=== PATIENT | male | born 1970 | race African-American/Black ===

== ENCOUNTER 2017-05-07 01:12 | Emergency (ER) | payer OTHER ==
[2017-05-07] MEDS: SUMAtriptan SUCCINATE 25 MG TABLET PO ONE ×2 (01:25→01:43)
--- NOTE | 2017-05-07 01:25 | ED Physician Documentation ---
Headache - HISTORIAN Historian: patient - HPI Chief Complaint: Headache Additional Information: Patient has a history of cluster migraine headaches, patient states that he has them everyday. Has been seeing a neurologist. Recently has been placed on Nortriptyline and oxygen therapy. This seems to be helping him, however he has run out of the nortriptyline and his oxygen has run out. 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 Patient denies any nausea or vomiting. Has not had any history of head trauma. Patient states that the headaches usually is behind us right and describes it as a pounding sensation. Patient denies any numbness or weakness. Patient denies any visual acuity changes. Patient states is similar to his previous migraine headaches only more severe. Onset: hours (2 hours) Timing: abrupt, still present Severity: severe Quality: similar to previous Associated Symptoms: sensitivity to light, neck pain (crock in neck on the R side). denies: fever, chills, problems with vision, nausea, vomiting, light- headedness Exacerbated By: light, noise - ROS NEURO/PSYCH: denies: depression - PAST HX Medical History: hypertension Surgical History: no surgical history (did you estimate be smoked) Immunizations: referred to PCP Allergies/Adverse Reactions: Allergies Allergy/AdvReac Type Severity Reaction Status Date / Time tomato Allergy Unknown Verified 05/07/17 01:29 CDT Home Medications: Ambulatory Orders Medication Instructions Recorded Fluticasone Propionate [Flonase 1 spray NS D 01/11/15 Nasal [place]] SUMAtriptan SUCCINATE [Imitrex] 1 each SUBCUT PRN PRN 02/17/16 Verapamil HCl [Calan] 100 mg PO TID 02/17/16 - SOCIAL HX Smoking History: non-smoker Alcohol Use: none Drug Use: none - Family HX Family History: none - VITAL SIGNS Vital Signs: Vital Signs Temp Pulse Resp BP Pulse Ox 82 16 135/82 100 05/07/17 01:15 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 05/07/17 01:15 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 05/07/17 01:15 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 05/07/17 01:15 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 - REVIEWED ASSESSMENTS Nursing Assessment Reviewed: Yes Vitals Reviewed: Yes ED Results Lab/Radiology - Orders Orders: ED Orders Category Date Time Status Cyclobenzaprine HCl [Flexeril] Med 05/07/17 01:47 Once 10 mg PO NOW ONE Ketorolac Tromethamine [Toradol] Med 05/07/17 01:32 Discontinued 60 mg IM NOW ONE SUMAtriptan SUCCINATE [Imitrex] Med 05/07/17 01:22 Discontinued 50 mg PO .STK-MED ONE SUMAtriptan SUCCINATE [Imitrex] Med 05/07/17 01:22 Discontinued 50 mg PO NOW ONE Oxygen Daily Oxygen 05/07/17 01:30 Ordered Headache Physical Exam - EXAM General Appearance: alert, moderate distress Neck: normal inspection, supple, other (tenderness over the right trapizius). No: lymphadenopathy, stiff neck Respiratory: no resp distress, chest non-tender, breath sounds normal. No: wheezes, rales, rhonchi CVS: reg. rate & rhythm, heart sounds nml Abdomen: non-tender, no distention Skin: color nml, no rash - NEURO/PSYCH Higher Functions: alert, oriented x3, nml speech, mood/affect nml Cranial: nml as tested, no evidence of acute CVA Cerebellar: nml as tested Sensorimotor: motor nml, sensation nml Discharge Clincal Impression: Cluster headache Qualifiers: Headache chronicity pattern: chronic headache Intractability: not intractable Qualified Code(s): G44.029 - Chronic cluster headache, not intractable Additional Instructions: Alternate warm cool compress to the neck area. Continue with present medications. Condition: Stable Disposition: 01 HOME, SELF-CARE Decision to Admit: NO Date of Decison to Admit: 05/07/17 Decision Time: 01:51
[2017-05-07 01:37] VITALS: BP 135/82
[2017-05-07] MEDS: KETOROLAC TROMETHAMINE 60 MG/2 ML VIAL IM ONE (01:42)
[2017-05-07] MEDS: CYCLOBENZAPRINE HCL 5 MG TABLET PO ONE (01:52)
[2017-05-07] MEDS: CYCLOBENZAPRINE HCL 5 MG TABLET ONE (01:54)
== END 2017-05-07 01:15 | disposition home or self-care (01) ==
LOC: ED 01:12
DX: G44.029 Chronic cluster headache, not intractable (principal)
CPT/HCPCS: 96372; 99283; J1885

== ENCOUNTER 2017-07-26 09:03 | Emergency (ER) | payer OTHER ==
[2017-07-26 09:25] VITALS: BP 106/75
--- NOTE | 2017-07-26 09:30 | ED Physician Documentation ---
General Adult - HISTORIAN Historian: patient - HPI Stated Complaint: right knee pain Chief Complaint: General Adult Onset: days ago Timing: still present Further Comments: yes (Pt is a 46 yo male with R knee pain for several days. Pt does not recall acute injury. Pt states that he has occasionally gotten knee pain in the past, but this is worse than usual.) - ROS CONST: no problems EYES/ENT: none CVS/RESP: none GI/: none MS/SKIN/LYMPH: other (R knee pain) - PAST HX Past History: other (migraine) Allergies/Adverse Reactions: Allergies Allergy/AdvReac Type Severity Reaction Status Date / Time tomato Allergy Unknown Verified 07/26/17 10:00 Home Medications: Ambulatory Orders Medication Instructions Recorded Fluticasone Propionate [Flonase 1 spray NS D 01/11/15 Nasal [place]] SUMAtriptan SUCCINATE [Imitrex] 1 each SUBCUT PRN PRN 02/17/16 Verapamil HCl [Calan] 100 mg PO TID 02/17/16 - SOCIAL HX Smoking History: cigarettes - FAMILY HX Family History: No - VITAL SIGNS Vital Signs: Vital Signs Temp Pulse Resp BP Pulse Ox 97.7 F 80 20 106/75 99 07/26/17 09:04 07/26/17 09:04 07/26/17 09:04 07/26/17 09:04 07/26/17 09:04 - REVIEWED ASSESSMENTS Nursing Assessment Reviewed: Yes Vitals Reviewed: Yes Progress - Progress Progress: X-ray R knee: 3 views of the knee demonstrates normal cortical margins. No fracture. No dislocation. No joint effusion. Small suprapatellar spur. No soft tissue irregularity. Impression: No acute appearing osseous abnormality. SARA wrap R knee NSAIDS Pt may use crutches that are available to him prn. General Adult Physical Exam - PHYSICAL EXAM GENERAL APPEARANCE: mild distress NECK: normal inspection, supple RESPIRATORY: no resp distress, chest non-tender CVS: reg rate & rhythm, heart sounds normal BACK: normal inspection, no CVA tenderness SKIN: warm/dry, normal color EXTREMITIES: other (R knee tenderness over patella; no effusion; no ligamentous instability; FROM) NEURO: oriented X3, motor nml, sensation nml Discharge Clincal Impression: R knee pain Referrals: Primary Doctor,No [Primary Care Provider] - Condition: Good Disposition: 01 HOME, SELF-CARE Decision to Admit: NO Decision Time: 10:44
[2017-07-26] MEDS: KETOROLAC TROMETHAMINE 60 MG/2 ML VIAL IM ONE (09:55)
--- NOTE | 2017-07-26 10:49 | Diagnostic Imaging Report ---
KRYSTAL REYNOLDS [facility] [id number] [facility] [address] 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 No fracture. No dislocation. No joint effusion. Small suprapatellar spur. No soft tissue irregularity. Impression: No acute appearing osseous abnormality Electronically signed on Jul 26, 2017 10:35:30 AM REINFORCING BAR SETTER by: Isiah TAM
== END 2017-07-26 11:09 | disposition home or self-care (01) ==
LOC: ED 09:03
DX: M25.561 Pain in right knee (principal)
CPT/HCPCS: 73562; 96372; 99282; J1885

== ENCOUNTER 2017-08-05 10:57 | Emergency (ER) | payer OTHER ==
--- NOTE | 2017-08-05 11:08 | ED Physician Documentation ---
General Adult - HISTORIAN Historian: patient - HPI Stated Complaint: ear swelling Chief Complaint: General Adult Onset: hours Timing: still present Severity: moderate Further Comments: yes (Pt is a 46 yo male with hx cluster headaches. Pt had his L ear pierced as a treatment for his headache. After 2 weeks he removed the piercing. Pt has swelling in the area where the ear had been pierced. It is painful to like on that ear when sleeping.) - ROS CONST: no problems EYES/ENT: other (ext ear pain/swelling) CVS/RESP: none GI/: none MS/SKIN/LYMPH: none - PAST HX Past History: hypertension, other (cluster headaches) Allergies/Adverse Reactions: Allergies Allergy/AdvReac Type Severity Reaction Status Date / Time tomato Allergy Unknown Verified 08/05/17 11:13 Home Medications: Ambulatory Orders Medication Instructions Recorded Fluticasone Propionate [Flonase 1 spray NS D 01/11/15 Nasal [place]] SUMAtriptan SUCCINATE [Imitrex] 1 each SUBCUT PRN PRN 02/17/16 Verapamil HCl [Calan] 100 mg PO TID 02/17/16 Amoxicillin/Potassium Clav 1 each PO Q12H #20 tablet 08/05/17 [Augmentin 875-125 Tablet] - SOCIAL HX Smoking History: cigarettes - FAMILY HX Family History: No - VITAL SIGNS Vital Signs: Vital Signs Temp Pulse Resp BP Pulse Ox 106/75 07/26/17 09:04 - REVIEWED ASSESSMENTS Nursing Assessment Reviewed: Yes Vitals Reviewed: Yes Progress - Progress Progress: Possible abscess Rx Augmentin (875/125). Take one tablet by mouth every 12 hrs for 10 days. General Adult Physical Exam - PHYSICAL EXAM GENERAL APPEARANCE: mild distress EENT: pharynx normal NECK: normal inspection, supple RESPIRATORY: no resp distress, chest non-tender, breath sounds normal CVS: reg rate & rhythm, heart sounds normal, equal pulses ABDOMEN: soft, no organomegaly, normal bowel sounds BACK: normal inspection SKIN: other (swelling ext ear, does not appear with inflammation; ? abscess v keloid) EXTREMITIES: non-tender, normal range of motion, no evidence of injury NEURO: oriented X3, motor nml, sensation nml Discharge Clincal Impression: outer ear swelling Prescriptions: Amoxicillin/Potassium Clav [Augmentin 875-125 Tablet] 1 each PO Q12H #20 tablet Referrals: Mine Hong MD [Primary Care Provider] - Condition: Good Disposition: 01 HOME, SELF-CARE Decision to Admit: NO Decision Time: 11:14
[2017-08-05 11:46] VITALS: BP 148/85
== END 2017-08-05 11:38 | disposition home or self-care (01) ==
LOC: ED 10:57
DX: H93.8X2 Other specified disorders of left ear (principal); F17.210 Nicotine dependence, cigarettes, uncomplicated; I10 Essential (primary) hypertension
CPT/HCPCS: 99282; 99283

== ENCOUNTER 2017-11-17 07:58 | Emergency (ER) | payer OTHER ==
[2017-11-17] MEDS ORDERED: 0.9 % SODIUM CHLORIDE 1,000 ML IV SCH (08:30)
[2017-11-17] MEDS ORDERED: LOPERAMIDE HCL 2 MG CAPSULE PO ONE (08:32)
[2017-11-17] MEDS ORDERED: 0.9 % SODIUM CHLORIDE 1,000 ML IV ONE (08:42)
--- NOTE | 2017-11-17 08:42 | ED Physician Documentation ---
Abdominal Pain - HISTORIAN Historian: patient, spouse - HPI Stated Complaint: diarrhea Chief Complaint: Abdominal Pain Additonal Information: 4-5 diarrhea movements per day w/spotty abd pain onset last monday at mothers day picnic. no sig nausea eats fairly as usual. pt feels food poisioning but no other people got the symptoms. bm at first soft now liquid-normal color plus has triggered cluster headaches. there is urinary urgency b ut this not sig unusual Onset: days ago (5) Timing: worse Context: bad food. denies: out of country travel Severity: moderate Quality: pain, cramping, sharp Associated Symptoms: diarrhea. denies: nausea, vomiting, bloody emesis, bloody stools, grossly bloody stools, mucous, loss of appetite, chest pain Exacerbated by: food, walking Relieved by: other (has not taken any otc meds) - ROS CONST: no problems GI/: none CVS/RESP: none EYES/ENT: none MS/SKIN/LYMPH: none NEURO/PSYCH: headache - SOCIAL HX Smoking History: non-smoker Alcohol Use: rarely Drug Use: none - FAMILY HX Family History: no significant history ( does not have any diarrhea) - PAST HX Past History: other (cluster headaaches) Ischemic Bowel Risk Factors: none Other History: hypertension Surgeries/Procedures: appendectomy Home Medications: Ambulatory Orders Medication Instructions Recorded SUMAtriptan SUCCINATE [Imitrex] 1 each SUBCUT PRN PRN 02/17/16 Verapamil HCl [Calan] 100 mg PO TID 02/17/16 Allergies/Adverse Reactions: Allergies Allergy/AdvReac Type Severity Reaction Status Date / Time tomato Allergy Unknown Verified 11/17/17 08:15 - VITAL SIGNS Vital Signs: Vital Signs Temp Pulse Resp BP Pulse Ox 97.7 F 76 16 126/76 100 11/17/17 08:09 11/17/17 08:09 11/17/17 08:09 11/17/17 08:09 11/17/17 08:09 - REVIEWED ASSESSMENTS Nursing Assessment Reviewed: Yes Vitals Reviewed: Yes ED Results Lab/Radiology - Lab Results Lab Results: Lab Results 11/17/17 11/17/17 11/17/17 09:10 09:10 09:10 WBC 4.80 K/ul K/ul (4.00-12.00) RBC 4.45 M/ul M/ul (3.90-5.20) Hgb 12.8 g/dL g/dL (12.0-18.0) Hct 39.9 % % (37.0-53.0) MCV 89.5 fl fl (80.0-100.0) MCH 28.7 pg pg (28.0-34.0) MCHC 32.1 g/dL g/dL (30.0-36.0) RDW 12.7 % % (11.3-14.3) Plt Count 208 K/mm3 K/mm3 (130-400) Neut % (Auto) 60.1 % % (39.0-79.0) Lymph % (Auto) 29.7 % % (16.0-50.0) [place] % (Auto) 4.6 % % (0.0-11.0) Eos % (Auto) 4.1 % % (0.0-6.8) Baso % (Auto) 0.3 (0.0-1.5) Neut # (Auto) 2.8 # k/uL # k/uL (1.4-7.7) Lymph # (Auto) 1.4 # k/uL # k/uL (0.6-4.0) [place] # (Auto) 0.2 # k/uL # k/uL (0.0-0.9) Eos # (Auto) 0.2 # k/uL # k/uL (0.0-0.6) Baso # (Auto) 0.0 # k/uL # k/uL (0.0-0.5) Reactive Lymphs % 1.2 % % (0.0-5.0) Reactive Lymphs # 0.1 # k/uL # k/uL (0.0-0.8) Sodium 139 mmol/L mmol/L (136-145) Potassium 4.4 mmol/L mmol/L (3.5-5.1) Chloride 106 mmol/L mmol/L (98-107) Carbon Dioxide 26 mmol/L mmol/L (22-30) BUN 16 mg/dL mg/dL (9-20) Creatinine 1.20 mg/dL mg/dL (0.66-1.25) Estimated Creat Clear 160 Est GFR ( Amer) > 60 (60 - ) Est GFR (Non-Af Amer) > 60 (60 - ) Glucose 105 mg/dL mg/dL (74-106) Calcium 9.7 mg/dL mg/dL (8.4-10.2) Total Bilirubin 0.1 mg/dL L mg/dL (0.2-1.3) AST 26 U/L U/L (15-46) ALT 42 U/L U/L (13-69) Alkaline Phosphatase 71 U/L U/L (38-126) Total Protein 7.2 g/dL g/dL (6.3-8.2) Albumin 4.2 g/dL g/dL (3.5-5.0) Lipase 60 U/L U/L (23-300) - Radiology Radiology Impressions: no path seen acute abdomen - Orders Orders: ED Orders Category Date Time Status ABD SERIES PA CHEST [RAD] Stat Exams 11/17/17 Taken CBC/PLATELET/DIFF Routine Lab 11/17/17 09:10 Completed CMP Routine Lab 11/17/17 09:10 Completed GI PATH [GASTROINTESTINAL PATHOGENS] Stat Lab 11/17/17 09:25 Received LIPASE Stat Lab 11/17/17 09:10 Completed URINALYSIS Routine Lab 11/17/17 Ordered 0.9 % Sodium Chloride [Normal Saline] 1,000 ml Med 11/17/17 08:30 Ordered IV Q10H Loperamide HCl [Immodium] Med 11/17/17 08:32 Discontinued 2 mg PO NOW ONE Abdominal Pain Physical Exam - Physical Exam General Appearance: mild distress, moderate distress EENT: eye inspection normal NECK: normal inspection RESPIRATORY: no resp distress CVS: reg rate & rhythm, heart sounds normal ABDOMEN: soft, tenderness (genl mild) SKIN: warm/dry, normal color. No: cyanosis, diaphoresis, jaundice, mottled EXTREMITIES: non-tender, normal range of motion NEURO: oriented X3, motor nml, sensation nml, mood/affect nml Vital Signs: Vital Signs Temp Pulse Resp BP Pulse Ox 97.7 F 76 16 126/76 100 11/17/17 08:09 11/17/17 08:09 11/17/17 08:09 11/17/17 08:09 11/17/17 08:09 Discharge Clincal Impression: food poisioning - dehydration Referrals: Mine Hong MD [Primary Care Provider] - 2 Days Comments: to get immodium and ORT gatoraid 08/05 w/water 07/05 Condition: Good Disposition: 01 HOME, SELF-CARE Decision to Admit: NO Decision Time: 11:03
[2017-11-17 09:16] LABS: BASOPHILS % 0.3 (0.0-1.5); EOSINOPHILS % 4.1 % (0.0-6.8); MEAN CORPUSCULAR HEMOGLOBIN 28.7 pg (28.0-34.0); MEAN CORPUSCULAR VOLUME 89.5 fl (80.0-100.0); MONOCYTES % 4.6 % (0.0-11.0); NEUTROPHILS # 2.8 # k/uL (1.4-7.7)
[2017-11-17 09:41] LABS: eGFR (African) > 60; eGFR (Non-African) > 60
[2017-11-17 11:04] VITALS: BP 128/74
[2017-11-17 16:21] LABS: ADENOVIRUS F 40/41 Not Detected (Not Detected); ASTROVIRUS Not Detected (Not Detected); C. DIFFICILE (TOXIN A/B) Not Detected (Not Detected); CRYPTOSPORIDIUM Not Detected (Not Detected); CYCLOSPORA CAYETANENSIS Not Detected (Not Detected); ENTAMOEBA HISTOLYTICA Not Detected (Not Detected); GIARDIA LAMBLIA Not Detected (Not Detected); ROTAVIRUS A Not Detected (Not Detected); SAPOVIRUS Not Detected (Not Detected); VIBRIO CHOLERAE Not Detected (Not Detected)
--- NOTE | 2017-11-17 19:26 | Diagnostic Imaging Report ---
BENEDICTO LOMBARDO [facility] [address] [facility] [address] [address] Report Submission Date: November 17, 2017 9:14:33 AM CDT Patient Study Name: ACE RAYA Date: November 17, 2017 8:35:14 AM CDT Modality Type: DX Gender: M Description: ABDOMEN : 72 Institution: [facility] Physician: BENEDICTO LOMBARDO Examination: Abdomen series History: ABD SERIES W/ PA CHEST, MIDLINE ABD PAIN AND DIARRHEA SINCE 11/13/17 (Hx ) Findings: 7 views obtained of the chest and abdomen. No abnormal dilation of the large or small bowel. Air and stool throughout the large bowel. No suspicious calcification projecting over the renal fossa or the lower pelvic region. Osseous structures are appropriate for age. Right hip replacement. No focal infiltrate of process. Normal cardiac silhouette. Left upper lung granuloma. Impression: No obstruction. No focal infiltrate/effusion. No suspicious calcifications by plain film sensitivity. Electronically signed on November 17, 2017 9:14:33 AM CDT by: Isiah TAM
== END 2017-11-17 11:04 | disposition home or self-care (01) ==
LOC: ED 07:58
DX: E86.0 Dehydration (principal); T62.94XA Toxic effect of unspecified noxious substance eaten as food, undetermined, initial encounter; X58.XXXA Exposure to other specified factors, initial encounter; Y93.9 Activity, unspecified; Y92.9 Unspecified place or not applicable; Y99.9 Unspecified external cause status
CPT/HCPCS: 74022; 80053; 83690; 85025; 87507; J7030; 96360; 96361; S1016

== ENCOUNTER 2019-02-19 13:55 | Emergency (ER) | payer OTHER ==
--- NOTE | 2019-02-19 14:25 | ED Physician Documentation ---
Lower Extremity Problem - HISTORIAN Historian: patient - HPI Stated Complaint: pain inner left thigh Chief Complaint: Lower Extremity Problem Additional Information: Patient presents to the ED with left inner thigh pain after driving to [facility] over the weekend February 08. Patient states the pain started the day after he got back from his trip. He describes the pain in his left inner thigh, just above the knee, as a rope like feeling and someone is pulling the rope. He denies shortness of breath, chest pain, dizziness or heart palpitations. When the pain first started the leg was swollen, however, has normalized. Location of Injury: L leg, L thigh Onset: days ago (10) Timing: still present Duration: constant Recent Injury: No Where: home Severity: moderate Quality: pain, swelling Exacerbated By: walking, movement Relieved By: nothing Associated Symptoms: denies: chest pain, shortness of breath, rapid heart rate, fainting - ROS CONST: denies: fever MS/SKIN/LYMPH: leg pain. denies: calf pain CVS/RESP: denies: chest pain, shortness of breath, cough GI/: denies: abdominal pain, vomiting, nausea EYES/ENT: denies: problems with vision NERUO/PSYCH: headache (cluster headaches). denies: dizziness - PAST HX Past History: other (cluster headaches) PE Risk Factors: other (long trip) Surgeries/Procedures: none Allergies/Adverse Reactions: Allergies Allergy/AdvReac Type Severity Reaction Status Date / Time tomato Allergy Severe Anaphylaxis Verified 02/19/19 14:14 Home Medications: Ambulatory Orders Medication Instructions Recorded SUMAtriptan SUCCINATE [Imitrex] 1 each SUBCUT PRN PRN 02/17/16 Verapamil HCl [Calan] 120 mg PO TID 02/17/16 Enoxaparin Sodium [Lovenox] 150 mg SQ BID 3 Days #6 ml 02/19/19 - SOCIAL HX Smoking History: cigarettes Alcohol Use: none Drug Use: none - FAMILY HX Family History: none - VITAL SIGNS Vital Signs: Vital Signs Temp Pulse Resp BP Pulse Ox 98.9 F 79 18 118/73 97 02/19/19 13:55 02/19/19 13:55 02/19/19 13:55 02/19/19 13:55 02/19/19 13:55 - REVIEWED ASSESSMENTS Nursing Assessment Reviewed: Yes Vitals Reviewed: Yes ED Results Lab/Radiology - Lab Results Lab Results: Lab Results 02/19/19 02/19/19 02/19/19 14:34 14:34 14:34 WBC 5.50 K/ul K/ul (4.00-12.00) RBC 5.14 M/ul M/ul (3.90-5.20) Hgb 15.1 g/dL g/dL (12.0-18.0) Hct 44.9 % % (37.0-53.0) MCV 87.0 fl fl (80.0-100.0) MCH 29.3 pg pg (28.0-34.0) MCHC 33.5 g/dL g/dL (30.0-36.0) RDW 13.2 % % (11.3-14.3) Plt Count 211 K/mm3 K/mm3 (130-400) Neut % (Auto) Farm Crew Leader Lymph % (Auto) Farm Crew Leader [place] % (Auto) Farm Crew Leader Eos % (Auto) Farm Crew Leader Baso % (Auto) Farm Crew Leader Neut # (Auto) Farm Crew Leader Lymph # (Auto) Farm Crew Leader [place] # (Auto) Farm Crew Leader Eos # (Auto) Farm Crew Leader Baso # (Auto) Farm Crew Leader Seg Neutrophils % 54 % % (39-79) Lymphocytes % 27 % % (16-50) Monocytes % 9 % % (0-11) Eosinophils % 4 % % (0-7) Reactive Lymphocytes 6 % H % (0-5) Plt Morphology Comment Normal (NORMAL) RBC Morph Comment Normal (NORMAL) D-Dimer 421 ng/mL ng/mL (6.0-682) Sodium 140 mmol/L mmol/L (137-145) Potassium 4.2 mmol/L mmol/L (3.5-5.1) Chloride 105 mmol/L mmol/L (98-107) Carbon Dioxide 25 mmol/L mmol/L (22-30) Anion Gap 14.2 BUN 19 mg/dL mg/dL (9-20) Creatinine 1.04 mg/dL mg/dL (0.66-1.25) Estimated Creat Clear 185 Est GFR ( Amer) > 60 (60 - ) Est GFR (Non-Af Amer) > 60 (60 - ) Glucose 119 mg/dL H mg/dL (74-106) Calcium 9.8 mg/dL mg/dL (8.4-10.2) Total Bilirubin 0.4 mg/dL mg/dL (0.2-1.3) AST 49 U/L H U/L (15-46) ALT 37 U/L U/L (13-69) Alkaline Phosphatase 61 U/L U/L (38-126) Total Protein 6.9 g/dL g/dL (6.3-8.2) Albumin 4.2 g/dL g/dL (3.5-5.0) - Orders Orders: ED Orders Category Date Time Status CBC/PLATELET/DIFF Routine Lab 02/19/19 14:34 Completed CMP Routine Lab 02/19/19 14:34 Completed D DIMER Stat Lab 02/19/19 14:34 Completed Enoxaparin Sodium [Lovenox] Med 02/19/19 15:35 Discontinued 100 mg SQ NOW ONE Enoxaparin Sodium [Lovenox] Med 02/19/19 15:38 Discontinued 100 mg SQ NOW ONE Enoxaparin Sodium [Lovenox] Med 02/19/19 15:39 Discontinued 100 mg SQ NOW ONE Enoxaparin Sodium [Lovenox] Med 02/19/19 15:42 Discontinued 100 mg SQ NOW ONE Enoxaparin Sodium [Lovenox] Med 02/19/19 15:37 Discontinued 60 mg SQ NOW ONE Lower Extremity Problem - EXAM General Appearance: no distress Hips: bilateral hip: non-tender, normal inspection, normal range of motion, no evidence of injury Legs: left: pain (left inner thigh), soft tissue tenderness (cord like lesion left inner thigh at site of pain), bilateral: normal inspection, normal range of motion, no evidence of injury, N/A: swelling Knees: bilateral: non-tender, normal inspection, normal range of motion, no evidence of injury Ankle: bilateral: non-tender, normal inspection, normal range of motion, no evidence of injury Neuro/Tendon: normal sensation, normal motor functions, normal tendon functions EENT: FIDELINA RESPIRATORY: no resp distress, breath sounds normal. No: wheezes CVS: reg rate & rhythm, heart sounds normal, no murmur JOINT: nml ROM, Nml gait/weight bearing VASCULAR: no vascular compromise, pulses full/equal NEURO/PSYCH: oriented X3, motor nml, sensation nml, mood/affect nml SKIN: warm/dry, normal color BACK: normal inspection Discharge Clincal Impression: Left leg pain, Suspected DVT (deep vein thrombosis) Prescriptions: Enoxaparin Sodium [Lovenox] 150 mg SQ BID 3 Days #6 ml Referrals: Mine Hong MD [Primary Care Provider] - 2 Days Additional Instructions: 1. Get Ultrasound Venous doppler left leg tomorrow as soon as possible to rule out DVT 2. Lovenox 150mg subq every 12 hours until DVT is confirmed or ruled out. Next injection due 02/20/19 at 4:00 am 3. Call your PCP today as soon as possible to set up Ultrasound and schedule an appointment 4. Return to the ER for new or worsening symptoms of chest pain, shortness of breath, dizziness or heart palpitations. Condition: Stable Disposition: 01 HOME, SELF-CARE Decision to Admit: NO Date of Decison to Admit: 02/19/19 Decision Time: 15:49
[2019-02-19 14:53] LABS: eGFR (Non-African) > 60
[2019-02-19 15:04] LABS: SEGMENTED NEUTROPHILS % 54 % (39-79)
[2019-02-19] MEDS ORDERED: ENOXAPARIN SODIUM 60 MG/0.6 ML DISP.SYRIN SQ ONE (15:37)
[2019-02-19] MEDS: ENOXAPARIN SODIUM 100 MG/ML DISP.SYRIN SQ ONE ×4 (15:48→16:11)
[2019-02-19 16:15] VITALS: BP 130/76
== END 2019-02-19 15:56 | disposition home or self-care (01) ==
LOC: ED 13:55
DX: M79.652 Pain in left thigh (principal)
CPT/HCPCS: 36415; 80053; 85025; 85379; 96372; 99284; J1650

== ENCOUNTER 2019-05-07 11:57 | Emergency (ER) | payer OTHER ==
--- NOTE | 2019-05-07 12:03 | ED Physician Documentation ---
Low Back Pain - HISTORIAN Historian: patient - HPI Stated Complaint: upper back pain from a bad mattress Chief Complaint: Upper Back Injury/ Pain History: other (no chronic pain ) Onset: days ago (4) Duration: continues in ED Recent Injury: No Context: other (he feels from mattress ) Where: home Other Injuries: back Severity: moderate (12/10) Quality: dull Associated Symptoms: denies: fever, chills, sweating, constipation, incontinence, nausea, vomiting, problems urinating, difficulty walking, light- headedness Worsened By:: other (laying on mattress at home ) Further Comments: yes (He states he was noting his mattress is starting to give him upper back pain and states despite oTC meds he continues to have what he feels is muscle pain from this mattress. Denies any injury) - ROS CONST: no problems CVS/RESP: none EYES/ENT: none MS/SKIN/LYMPH: none Neuro/Psych: none - PAST HX Past History: other (none ) Surgeries/Procedures: none Immunizations: UTD Allergies/Adverse Reactions: Allergies Allergy/AdvReac Type Severity Reaction Status Date / Time tomato Allergy Severe Anaphylaxis Verified 05/07/19 12:10 Home Medications: Ambulatory Orders Medication Instructions Recorded SUMAtriptan SUCCINATE [Imitrex] 1 each SUBCUT PRN PRN 02/17/16 Verapamil HCl [Calan] 120 mg PO TID 02/17/16 - SOCIAL HX Smoking History: non-smoker Alcohol Use: none Drug Use: none - FAMILY HX Family History: none - VITAL SIGNS Vital Signs: Vital Signs Temp Pulse Resp BP Pulse Ox 97.2 F L 66 18 130/71 98 05/07/19 12:01 05/07/19 12:01 05/07/19 12:01 05/07/19 12:01 05/07/19 12:01 - REVIEWED ASSESSMENTS Nursing Assessment Reviewed: Yes Vitals Reviewed: Yes Progress - Progress Progress: Leans up and down easily in bed for exam DG Low Back Pain/Injury - Physical Exam General Appearance: no acute distress, alert EENT: eye inspection normal, no signs of dehydration Neck: muscle spasm (right side ) Resp/CVS: chest non-tender, breath sounds nml, heart sounds nml, no resp. distress Abdomen: non-tender Back: muscle spasm (left middle and upper right ) Neuro/Psych: oriented x3 Skin: warm/dry, normal color Extremities: non-tender, normal range of motion, no evidence of injury, no edema Discharge Clincal Impression: Muscle spasm Referrals: Mine Hong MD [Primary Care Provider] - 2 Days Comments: 1. Flexeril 10 mg take 1 by mouth every 8 hours as needed for pain 2. Change in position for comfort 3. Heat /ice for comfort 4. OTC meds as directed as needed for pain 5. see PCP in 2-4 days 6. Return to ER for any increased concerns Condition: Stable Disposition: 01 HOME, SELF-CARE Decision to Admit: NO Date of Decison to Admit: 05/07/19 Decision Time: 12:15
[2019-05-07 12:10] VITALS: BP 130/71
== END 2019-05-07 12:17 | disposition home or self-care (01) ==
LOC: ED 11:57
DX: M62.838 Other muscle spasm (principal)
CPT/HCPCS: 99281; 99282

== ENCOUNTER 2019-05-08 11:13 | Emergency (ER) | payer OTHER ==
--- NOTE | 2019-05-08 11:36 | ED Physician Documentation ---
Chest Pain - HISTORIAN Historian: patient - HPI Stated Complaint: rt side chest pain Chief Complaint: General Adult Additional Information: Patient presents to ED with right sided chest pain/scapular pain x 4 days. Patient was seen 4 days ago for low back pain. 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 He states the pain is 8/10, sharp stabbing, nonradiating, worse with deep breathing and cough. Onset: days ago (4) Timing: gradual onset Duration: waxing, waning Last known Well Date: 05/03/19 Last Known Well Time: 07:00 Context: exertion Severity: severe Quality: sharp, stabbing Chest Pain Radiation: no radiation Chest Pain Signs/Symptoms: denies: nausea, vomiting, diaphoresis, dizziness Worsened By: deep breaths, movement Relieved By: rest - ROS CONST: denies: fever, recent injury MS/LYMPH: back pain. denies: neck pain GI/: denies: vomiting, nausea EYES/ENT: none SKIN/ENDO: none NEURO/PSYCH: denies: headache - PAST HX MO risk factors: hypertension, other (migraines) DVT/PE Risk Factors: none TAD/AAA risk factors: none Neuro deficit: none GI disease: none Lung disease: none Surgeries/Procedures: none Allergies/Adverse Reactions: Allergies Allergy/AdvReac Type Severity Reaction Status Date / Time tomato Allergy Severe Anaphylaxis Verified 05/08/19 11:32 Home Medications: Ambulatory Orders Medication Instructions Recorded SUMAtriptan SUCCINATE [Imitrex] 1 each SUBCUT PRN PRN 02/17/16 Verapamil HCl [Calan] 120 mg PO TID 02/17/16 Orphenadrine (Nf) [Norflex (Nf)] 100 mg PO Q12 PRN #20 tablet.er 05/08/19 - SOCIAL HX Smoking History: non-smoker Alcohol Use: none Drug Use: none - FAMILY HX Family HX: none - VITAL SIGNS Vital Signs: Vital Signs Temp Pulse Resp BP Pulse Ox 97.7 F 64 16 107/63 100 05/08/19 11:17 05/08/19 11:17 05/08/19 11:17 05/08/19 11:17 05/08/19 11:17 - REVIEWED ASSESSMENTS Nursing Assessment Reviewed: Yes Vitals Reviewed: Yes Progress - EKG/XRAY/CT Comments: 111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 History: Evaluate lung lawson. Comparison exam: None provided. Findings: PA and lateral views of the chest demonstrates a normal cardiac and mediastinal silhouette. No focal infiltrate. No blunting of the costophrenic margins. Osseous structures are appropriate for age. Impression: No acute pulmonary process. Electronically signed on May 08, 2019 12:17:40 PM CANCELING MACHINE OPERATOR by: Isiah Harley - Orders Orders: ED Orders Category Date Time Status Place IV Lock 1T Care 05/08/19 11:35 Ordered CHEST 2VIEW [RAD] Stat Exams 05/08/19 Ordered CBC/PLATELET/DIFF Routine Lab 05/08/19 Ordered CMP Routine Lab 05/08/19 Ordered TROPONIN I Stat Lab 05/08/19 Ordered EKG WITH COMPARISON Stat Ther 05/08/19 Ordered Chest Pain Physical Exam - EXAM General Appearance: no acute distress, alert EENT: FIDELINA Respiratory: no resp. distress, chest non-tender, nml breath sounds CVS: reg. rate & rhythm, no murmur, other (right chest wall tenderness, right rhomboid tenderness.) Abdomen: soft, normal bowel sounds Skin: warm/dry, normal color Extremities: non-tender, normal range of motion, no evidence of injury, no edema Neuro: oriented X3, motor nml, mood/affect nml Discharge Clincal Impression: Musculoskeletal pain Prescriptions: Orphenadrine (Nf) [Norflex (Nf)] 100 mg PO Q12 PRN #20 tablet.er PRN Reason: muscle spasm/pain Referrals: Mine Hong MD [Primary Care Provider] - 2 Days Additional Instructions: 1. Ibuprofen 600mg every 6 hours and/or Tylenol 650mg every 4 hours as needed for pain 2. Norflex every 12 hours as needed for muscle spasm/pain 3. Apply biofreeze, bengay, aspercreme or icy hot to affected area as needed for pain 4. Stay active. Exercise helps muscle spasms 5. Apply ice or heat to affect areas as needed for comfort. 6. Follow up with PCP within 1 week 7. Return to ER for new or worsening symptoms Condition: Stable Disposition: 01 HOME, SELF-CARE Decision to Admit: NO Date of Decison to Admit: 05/08/19 Decision Time: 12:33
[2019-05-08 12:09] LABS: BASOPHILS % 0.4 % (0.0-1.5); NEUTROPHILS # 3.1 # k/uL (1.4-7.7)
[2019-05-08 12:19] LABS: eGFR (Non-African) > 60
--- NOTE | 2019-05-08 12:21 | Diagnostic Imaging Report ---
PATIENT MR#: [id number] PATIENT PATIENT NAME: ACE RAYA DATE OF : 1970 REFERRING PHYSICIAN: Mone Espana EXAM DATE: 05/08/2019 ACCESSION NUMBER: [id number] EXAM DESCRIPTION: CHEST 2VIEW Examination: PA and lateral chest. History: Evaluate lung lawson. Comparison exam: None provided. Findings: PA and lateral views of the chest demonstrates a normal cardiac and mediastinal silhouette. No focal infiltrate. No blunting of the costophrenic margins. Osseous structures are appropriate for age. Impression: No acute pulmonary process. Read by: Dr. Isiah Harley Transcribed by: Transcribed Date: Electronically signed by: Dr. Isiah Harley Date signed: 05/08/2019 12:20:25 PM
[2019-05-08] MEDS: ORPHENADRINE CITRATE 60 MG/2 ML ML IV ONE (13:08)
[2019-05-08 14:15] VITALS: BP 113/46
== END 2019-05-08 13:35 | disposition home or self-care (01) ==
LOC: ED 11:13
DX: R07.81 Pleurodynia (principal); M54.5 Low back pain
CPT/HCPCS: 71046; 80053; 84484; 85025; 93005; 96374; 99283; 99284; J2360; S1016